=== PATIENT | female | born 1960 | race Caucasian/White ===

== ENCOUNTER 2020-07-17 13:20 | Emergency (ER) | payer BC, OTHER ==
[2020-07-17] MEDS ORDERED: KETOROLAC TROMETHAMINE 60 MG/2 ML SDV IM ONE (15:37)
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
[2020-07-17 20:03] VITALS: BP 131/74
== END 2020-07-17 20:32 | disposition home or self-care (01) ==
LOC: ER 13:20
DX: S49.92XA Unspecified injury of left shoulder and upper arm, initial encounter (principal); S22.31XA Fracture of one rib, right side, initial encounter for closed fracture; S63.602A Unspecified sprain of left thumb, initial encounter; M54.2 Cervicalgia; V49.50XA Passenger injured in collision with unspecified motor vehicles in traffic accident, initial encounter; I10 Essential (primary) hypertension; E11.9 Type 2 diabetes mellitus without complications; Z87.891 Personal history of nicotine dependence
CPT/HCPCS: 99284; 96372; 72050; 71046; 73130; 72110; J1885